=== PATIENT | female | born 1990 | race Caucasian/White ===

== ENCOUNTER 2016-09-18 10:56 | Emergency (ER) | payer OTHER ==
[~2016-09-18] VITALS: Ht 162.6 cm; Wt 91.0 kg
[~2016-09-18 10:56] MED LIST: SOTA80TA PO
[2016-09-18 10:57] VITALS: BP 140/89; PULSE 78; RESP 16; TEMP 97.6; O2SAT 99
[2016-09-18 11:15] VITALS: RESP 16; O2SAT 97
[2016-09-18] MEDS ORDERED: SODIUM CHLORIDE 0.9% FLUSH 10 ML FLUSH IVF PRN (11:30)
--- NOTE | 2016-09-18 11:32 | PD ---
HPI Chief Complaint: Chest Pain Time Seen by Provider: 11:05 Travel History International Travel<30 days: No Contact w/Intl Traveler<30days: No Traveled to known affect area: No History of Present Illness HPI The patient was seen and examined in the presence of the nurse. This patient woke up this morning with some discomfort in the right side of her neck musculature. She felt like she slept wrong. The pain migrated down into her central sternal area. She has a significant worsening if she moves her chest wall or changes position. If she lies flat or sits up the act of doing that flares her pain. She takes a deep breath she gets pain. No cough or shortness of breath or fever. Symptoms severity is moderate. Duration one day. No alleviating factors. She has history of SVT but had no palpitations or presyncopal symptoms today. PFSH Past Medical History Hx Anticoagulant Therapy: No Asthma: Yes Blood Disorders: No Heart Rhythm Problems: Yes (HX SVT) Cancer: No Cardiac Catheterization: Yes (EP STUDY 10/01/15) Cardiovascular Problems: Yes (SVT) Chemotherapy: No Chest Pain: No Cerebrovascular Accident: No Diabetes: No Diminished Hearing: No Endocrine: No Gastrointestinal Disorders: No Glaucoma: No Genitourinary: Yes (HX UTI) Hepatitis: No Hiatal Hernia: No Hypertension: No Immune Disorder: No Implanted Vascular Access Dvce: No Medical other: No Musculoskeletal: No Neurologic: No Psychiatric: No Reproductive: No Respiratory: No Integumentary: No Seizures: Yes Thyroid Disease: No Tetanus Vaccination: > 5 Years Influenza Vaccination: No ?: Not LMP: 09/18/16 : 1 Para: 1 Past Surgical History Abdominal Surgery: No AICD: No Cardiac Surgery: Yes Ear Surgery: No Endocrine Surgery: No Eye Surgery: No Genitourinary Surgery: No Gynecologic Surgery: No Hysterectomy: No Joint Replacement: No Neurologic Surgery: No Oral Surgery: Yes (TONSILS/ADNOIDS REMOVED A CHILD) Pacemaker: No Thoracic Surgery: No Tonsillectomy: Yes (AND ADENOIDS) Other Surgery: Yes (TONSILLECTOMY CHILD) Social History Alcohol Use: Yes (SOCIALLY) Tobacco Use: No Substance Use: No (PT DENIES) Allergies-Medications (Allergen,Severity, Reaction): Coded Allergies: No Known Allergies (Verified , 09/18/16) Uncoded Allergies: CORN (Allergy, Unknown, 9/9/03) Reported Meds & Prescriptions Reported Meds & Active Scripts Active No Active Prescriptions or Reported Medications Review of Systems General / Constitutional: No: Fever Eyes: No: Visual changes HENT: Positive: Neck Pain, No: Headaches Cardiovascular: Positive: Chest Pain or Discomfort Respiratory: No: Shortness of Breath Gastrointestinal: No: Abdominal Pain Genitourinary: No: Dysuria Musculoskeletal: No: Pain Skin: No Rash Neurologic: No: Weakness Psychiatric: No: Depression Endocrine: No: Polydipsia Hematologic/Lymphatic: No: Easy Bruising Physical Exam Narrative GENERAL: Well-nourished, well-developed patient in no apparent distress. SKIN: Focused skin assessment reveals no rash and nodules. Skin is Warm and dry. HEAD: Atraumatic. Normocephalic. EYES: Pupils equal and round. No scleral icterus. No injection or drainage. ENT: No nasal bleeding or discharge. Mucous membranes pink and moist. NECK: Trachea midline. No JVD. No midline tenderness. No bruising or swelling. CARDIOVASCULAR: Regular rate and rhythm. No murmur appreciated. RESPIRATORY: No accessory muscle use. Clear to auscultation. Breath sounds equal bilaterally. GASTROINTESTINAL: Abdomen soft, non-tender, nondistended. Hepatic and splenic margins not palpable. MUSCULOSKELETAL: No obvious deformities. No clubbing. No cyanosis. No edema. NEUROLOGICAL: Awake and alert. No obvious cranial nerve deficits. Motor grossly within normal limits. Normal speech. PSYCHIATRIC: Appropriate mood and affect; insight and judgment normal. Data Data Last Documented VS Vital Signs Date Time Temp Pulse Resp B/P Pulse Ox O2 Delivery O2 Flow Rate FiO2 09/18/16 11:15 16 97 Room Air 09/18/16 10:57 97.6 78 140/89 Orders Basic Metabolic Panel (Bmp) (09/18/16 11:17) Ckmb (Isoenzyme) Profile (09/18/16 11:17) Complete Blood Count With Diff (09/18/16 11:17) D-Dimer (09/18/16 11:17) Prothrombin Time / Inr (Pt) (09/18/16 11:17) Act Partial Throm Time (Ptt) (09/18/16 11:17) Troponin I (09/18/16 11:17) Chest, Single Ap (09/18/16 11:17) Ecg Monitoring (09/18/16 11:17) Iv Access Insert/Monitor (09/18/16 11:17) Oximetry (09/18/16 11:17) Sodium Chloride 0.9% Flush (Ns Flush) (09/18/16 11:30) Labs Laboratory Tests Test 09/18/16 11:27 White Blood Count 6.2 TH/MM3 Red Blood Count 4.66 MIL/MM3 Hemoglobin 14.4 GM/DL Hematocrit 41.8 % Mean Corpuscular Volume 89.7 FL Mean Corpuscular Hemoglobin 30.9 PG Mean Corpuscular Hemoglobin 34.4 % Concent Red Cell Distribution Width 12.5 % Platelet Count 204 TH/MM3 Mean Platelet Volume 9.0 FL Neutrophils (%) (Auto) 61.9 % Lymphocytes (%) (Auto) 27.7 % Monocytes (%) (Auto) 9.1 % Eosinophils (%) (Auto) 0.9 % Basophils (%) (Auto) 0.4 % Neutrophils # (Auto) 3.8 TH/MM3 Lymphocytes # (Auto) 1.7 TH/MM3 Monocytes # (Auto) 0.6 TH/MM3 Eosinophils # (Auto) 0.1 TH/MM3 Basophils # (Auto) 0.0 TH/MM3 CBC Comment DIFF FINAL Differential Comment Prothrombin Time 10.8 SEC Prothromb Time International 1.0 RATIO Ratio Activated Partial 30.0 SEC Thromboplast Time D-Dimer Quantitative (PE/DVT) 0.34 MG/L FEU Sodium Level 141 MEQ/L Potassium Level 3.8 MEQ/L Chloride Level 103 MEQ/L Carbon Dioxide Level 28.6 MEQ/L Anion Gap 9 MEQ/L Blood Urea Nitrogen 7 MG/DL Creatinine 0.71 MG/DL Estimat Glomerular Filtration 99 ML/MIN Rate Random Glucose 88 MG/DL Calcium Level 9.1 MG/DL Total Creatine Kinase 70 U/L Troponin I LESS THAN 0.02 NG/ML MDM Medical Decision Making Medical Screen Exam Complete: Yes Emergency Medical Condition: Yes Medical Record Reviewed: Yes Differential Diagnosis Differential diagnosis includes [place], angina, pericarditis, pleurisy, GERD, anxiety, PE Narrative Course I have reviewed the patient's electronic medical record. I reviewed her EKG which is normal. No ST elevation or ectopy. Not consistent with pericarditis I reviewed her chest x-ray which is normal is normal Extended cardiac monitoring reveals sinus rhythm without ectopy IV placed CBC is normal Metabolic profile is normal D-dimer is 0.34, ruling out PE in this low risk patient with low clinical suspicion Coagulation studies are normal CK is normal Troponin is normal Etiology of her chest pain is unclear but I think it is musculoskeletal. Extensive workup is negative. There is no objective findings and her vital signs are normal. Tramadol written for pain relief but I specifically recommended she discuss this with her family physician to determine whether other workup indicated and return if she should worsen Diagnosis Primary Impression: Chest pain in adult Additional Instructions: The patient was advised to follow up with their physician and return if they worsen. The patient was warned about potential sedation for the medications they will receive on prescription. Med/Other Pt SpecificInfo: Prescription(s) given Scripts Tramadol 50 Mg Tab50 Mg PO Q6H PRN (PAIN) #20 TAB Ref 0 Prov:Dexter Hardin MD 09/18/16 Disposition: 01 DISCHARGE HOME Condition: Stable Dexter Hardin MD Sep 18, 2016 11:32
--- NOTE | 2016-09-18 11:33 | RADHPO ---
EXAM DATE/TIME: 09/18/2016 11:24 [facility] COMPARISON: No previous studies available for comparison. INDICATIONS : Chest pain during inspiration and movement. MEDICAL HISTORY : Asthma. SURGICAL HISTORY : Tonsillectomy. ENCOUNTER: Initial ACUITY: 1 day PAIN SCORE: 7/10 LOCATION: Right chest and midline. FINDINGS: A single view of the chest demonstrates the lungs to be symmetrically aerated without evidence of mas s, infiltrate or effusion. The cardiomediastinal contours are unremarkable. Osseous structures are intact. CONCLUSION: Normal examination. Tono Ba MD on September 18, 2016 at 11:32 Board Certified Radiologist. This report was verified electronically.
[2016-09-18 11:40] LABS: AUTOMATED NEUTROPHIL # 3.8 TH/MM3 (1.8-7.7); BASOPHIL % 0.4 % (0.0-2.0); EOSINOPHIL # 0.1 TH/MM3 (0-0.4); EOSINOPHIL % 0.9 % (0.0-4.0); HEMATOCRIT 41.8 % (35.0-46.0); HEMO FLAGS DIFF FINAL; LYMPH % 27.7 % (9.0-44.0); LYMPHOCYTE # 1.7 TH/MM3 (1.0-4.8); MEAN CELL VOLUME 89.7 FL (80.0-100.0); MEAN CORPUSCULAR HEMOGLOBIN 30.9 PG (27.0-34.0); MEAN CORPUSCULAR HGB CONC 34.4 % (32.0-36.0); MONO % 9.1 % (0.0-8.0); NEUT % 61.9 % (16.0-70.0); PLATELET COUNT 204 TH/MM3 (150-450); RED BLOOD COUNT 4.66 MIL/MM3 (4.00-5.30); RED CELL DISTRIBUTION WIDTH 12.5 % (11.6-17.2); WHITE BLOOD COUNT 6.2 TH/MM3 (4.0-11.0)
[2016-09-18 11:44] LABS: CHLORIDE 103 MEQ/L (98-107); POTASSIUM 3.8 MEQ/L (3.5-5.1); SODIUM (NA) 141 MEQ/L (136-145)
[2016-09-18 11:48] LABS: ANION GAP 9 MEQ/L (5-15); BICARBONATE 28.6 MEQ/L (21.0-32.0); BLOOD UREA NITROGEN 7 MG/DL (7-18)
[2016-09-18 11:51] LABS: GLOMERULAR FILTRATION RATE 99 ML/MIN (>89)
[2016-09-18 11:59] LABS: CREATINE KINASE 70 U/L (26-192)
[2016-09-18 12:03] LABS: PROTHROMBIN TIME - PATIENT 10.8 SEC (9.8-11.6)
[2016-09-18] MEDS ORDERED: TRAM50TA PO (12:21)
[2016-09-18 12:34] VITALS: BP 142/87
--- NOTE | 2016-09-19 14:25 | EKG ---
Date Performed: 09/18/2016 Time Performed: 10:57:12 PTAGE: 26 years EKG: Sinus rhythm Since previous tracing, no significant change noted Normal ECG PREVIOUS TRACING : 10/01/2015 07.15.54 DOCTOR: Balbir Au Interpretating Date/Time 09/19/2016 14:24:05
== END 2016-09-18 12:36 | disposition home or self-care (01) ==
LOC: PHED 10:56
DX: R07.89 Other chest pain (principal)
CPT/HCPCS: 71010; 80048; 82550; 84484; 85025; 85379; 85610; 85730; 93005; 99283